=== PATIENT | male | born 1940 | race Caucasian/White ===

== ENCOUNTER 2016-05-03 07:56 | Day surgery (SDC) | payer MEDICARE, BC ==
[~2016-05-03 07:56] MED LIST: ALEVE220 M4 PO; FLOMAX0.4 M1 PO; LOW DOSE ASPIRI81 M3 PO; VALSARTAN-HCTZ1 EA11 PO
[2016-05-03 08:54] LABS: BASO % 0.8 % (0-2); EOS % 4.1 % (0-7); EOSINOPHIL ABSOLUTE COUNT 0.2 tho/cmm (0.0-0.7); HCT-HEMATOCRIT 41.7 % (36.0-53.5); HGB-HEMOGLOBIN 13.8 gm/dl (13.5-17.0); IMMATURE GRANULOCYTES ABSOLUTE 0.01 tho/cmm (0-0.03); IMMATURE GRANULOCYTES PERCENT 0.2 % (0-0.3); LYMPH % 34.1 % (20-45); LYMPH ABSOLUTE COUNT 1.7 tho/cmm (0.8-4.5); MCH (MEAN CORPUSCULAR HGB) 32.1 pg (28.0-32.0); MCHC MEAN CORPUSCULAR HGB CONC 33.1 % (32.0-36.0); MEAN PLATELET VOLUME 9.2 cmc (9.4-12.4); MONO % 9.2 % (0-12); MONOCYTE ABSOLUTE COUNT 0.5 tho/cmm (0.0-1.2); NEUTROPHIL ABSOLUTE COUNT 2.5 tho/cmm (1.6-8.0); NEUTROPHIL-AUTOMATED 2.5 tho/cmm (1.6-8.0); NEUTROPHILS % 51.6 % (40-80); PLATELET COUNT 198 tho/cmm (150-450); RED CELL DISTRIBUTION WIDTH 13.7 % (12.4-16.4); WHITE BLOOD COUNT 4.9 tho/cmm (4.0-10.0)
[2016-05-03 09:57] LABS: ANION GAP 12 mmol/L (0-20); BLOOD UREA NITROGEN 21 mg/dl (6-24); CALCIUM 8.7 mg/dl (8.5-10.5); CARBON DIOXIDE-VENOUS 28 mmol/L (22-32); CHLORIDE 109 mmol/l (96-110); CREATININE 0.83 mg/dl (0.60-1.30); GLUCOSE 97 mg/dL (70-110); POTASSIUM 3.9 mmol/L (3.7-5.1); SODIUM 145 mmol/L (135-145); eGFR VALUE FOR BLACK >90 mL/Min
== END 2016-05-03 12:20 ==
LOC: SRG 07:56 → SHSB 08:02 → ORW 09:48
PROVIDERS: Anesthesiology
PROC: 0HX1XZZ Transfer Face Skin, External Approach (ICD-10-PCS; principal; 2016-05-03)
DX: L57.0 Actinic keratosis (principal); I10 Essential (primary) hypertension; I83.90 Asymptomatic varicose veins of unspecified lower extremity; M17.0 Bilateral primary osteoarthritis of knee; N40.1 Benign prostatic hyperplasia with lower urinary tract symptoms; R33.8 Other retention of urine; Z79.1 Long term (current) use of non-steroidal anti-inflammatories (NSAID); Z79.82 Long term (current) use of aspirin; Z79.899 Other long term (current) drug therapy; Z87.442 Personal history of urinary calculi; Z85.89 Personal history of malignant neoplasm of other organs and systems; Z90.49 Acquired absence of other specified parts of digestive tract; Z98.890 Other specified postprocedural states
CPT/HCPCS: J0690